=== PATIENT | female | born 1970 | race Two or more races ===

== ENCOUNTER 2019-08-18 08:36 | Outpatient (CLI) | payer OTHER | END 2019-08-18 08:49 | disposition home or self-care (01) | LOC: EDSEX 08:36 → LAB 08:36 | DX: E66.01 Morbid (severe) obesity due to excess calories (principal) ==

== ENCOUNTER 2019-08-19 16:41 | Inpatient (IN) | payer OTHER ==
[~2019-08-19] VITALS: Ht 157.5 cm; Wt 61.7 kg
== END 2019-08-24 11:11 | disposition home or self-care (01) | DRG 621 ==
LOC: SURH 08-20 07:00 → O/R 08-20 08:23 → SURH 08-20 08:23 → O/R 08-23 13:22 → SURG 08-23 13:22
PROVIDERS: ADMIT Plastic Surgery
PROC: 0H0V0ZZ Alteration of Bilateral Breast, Open Approach (ICD-10-PCS; 2019-08-23)
PROC: 0W0F0ZZ Alteration of Abdominal Wall, Open Approach (ICD-10-PCS; principal; 2019-08-23 14:15)
DX: E65 Localized adiposity (principal); N62 Hypertrophy of breast; M62.08 Separation of muscle (nontraumatic), other site; E66.01 Morbid (severe) obesity due to excess calories